=== PATIENT | female | born 1990 | race Caucasian/White ===

== ENCOUNTER 2020-11-15 22:52 | Inpatient (IN) | payer MEDICAID, SELFPAY ==
[2020-11-15 22:51] VITALS: BP 115/70; PULSE 101; RESP 17; TEMP 37.1; O2SAT 96
[2020-11-15 22:53] VITALS: BMI 20.7
[2020-11-16 06:00] VITALS: BP 86/52; PULSE 95; RESP 18; TEMP 36.8; O2SAT 95
[2020-11-16] MEDS: paliperidone ER 3 mg Tablet PO (06:31)
[2020-11-16] MEDS: chlorPROMazine 25 mg Tablet PO ×2 (08:04→16:43)
[2020-11-16] MEDS: duloxetine 30 mg Capsule 90 MG PO (08:04)
[2020-11-16] MEDS: gabapentin 300 mg Capsule 600 MG PO ×3 (08:04→21:20)
[2020-11-16] MEDS: BuSPIRONE 10 mg Tablet PO ×3 (08:04→21:20)
[2020-11-16 14:00] VITALS: BP 86/52; PULSE 97; RESP 16; TEMP 37.1; O2SAT 98
[2020-11-16] MEDS: nicotine 2 mg Gum BUCCAL (14:52)
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
[2020-11-16 20:17] VITALS: BP 92/53; PULSE 97; RESP 18; TEMP 36.9; O2SAT 96
[2020-11-16] MEDS: trazodone 100 mg Tablet PO (21:20)
[2020-11-17 05:57] VITALS: BP 94/61; PULSE 86; RESP 18; TEMP 36.8; O2SAT 95
[2020-11-17] MEDS: paliperidone ER 3 mg Tablet PO (06:58)
[2020-11-17] MEDS: chlorPROMazine 25 mg Tablet PO ×2 (08:40→17:22)
[2020-11-17] MEDS: BuSPIRONE 10 mg Tablet PO ×3 (08:40→21:09)
[2020-11-17] MEDS: duloxetine 30 mg Capsule 90 MG PO (08:40)
[2020-11-17] MEDS: gabapentin 300 mg Capsule 600 MG PO ×3 (08:40→21:09)
[2020-11-17] MEDS: nicotine 21 mg Patch 1 PATCH TRANSDERMA (09:27)
[2020-11-17] MEDS: hyDROXYzine 25 mg Capsule 50 MG PO ×2 (09:27→21:09)
--- NOTE | 2020-11-17 09:28 | PC.NURSE ---
Addendum entered by Michelle Constantino LPN 11/17/20 13:36: late entry prn med effective no further c/o anxiety but pt is withdrawn, isolating in her room Original Note: PRN VISTARIL 50 MG GIVEN PO PER PT C/O STATED ANXIETY PT SOMEWHAT TEARFUL
--- NOTE | 2020-11-17 13:29 | NPU.GN ---
[facility] Group Topic:Depression General Mood of Group: Samantha did attend group today, she was on time and her appearance was appropriate, she did participate. Today we played [employer], The patients marked an X on the symptoms that were called out. After the game was over, we discussed the many different symptoms that were displayed on the bingo card and discussed which symptoms they felt they suffer from and talked about ways to speak to the doctor about them.
[2020-11-17] MEDS: sucralfate 1 gm Tablet PO ×2 (13:47→21:09)
[2020-11-17 14:00] VITALS: BP 106/68; PULSE 115; RESP 20; TEMP 37.2; O2SAT 96
--- NOTE | 2020-11-17 14:02 | PC.NUTR ---
Nutrition note: Upon reviewing nutrition note of Yashira Goldstein (NICOLE), have updated diet to Gluten Free d/t celiac disease. See nutrition assessment for further details.
--- NOTE | 2020-11-17 17:51 | P.PN_ITS ---
Subjective NPU Subjective: Interval history: Samantha presents today reporting she is tolerating her medications being restarted. She is feeling better but still want to consider starting Zoloft with a possible plan to discontinue Cymbalta but she is not sure if she wants to because she feels that helps with some pain issues. We talked about not seeing the Klonopin in her records. And the fact that it would make much more sense for the practitioner who she reports tells her they have no problem with her being on Klonopin with marijuana to initiate that themselves. We discussed the possibility of discharge in the next 48 hours if he continues to improve. Mental Status Exam MSE Comments: This is a slender, underweight white female in [facility] scrubs with adequate grooming and eye contact. No abnormal movements except for mild psychomotor retardation. Cooperative with exam in no acute distress. Speech was decreased volume normal rate, with less whispering. Mood described as a little better, affect congruent. Thought process organized, thought content: Patient denied suicidal or homicidal ideation, there were no delusions reported or noted, she denied auditory or visual hallucinations. Attention and concentration appear intact memory appears reliable but none were formally tested. She is alert oriented x3. Insight and judgment appear improving, impulse control is limited, but improving. Vitals/I&O/Wt Last Vital Signs Temp 98.2 F 11/17/20 22:00 Pulse 90 11/17/20 22:00 Resp 16 11/17/20 22:00 BP 106/72 11/17/20 22:00 Pulse Ox 93 11/17/20 22:00 A&P Assessment and plan (1) PTSD (post-traumatic stress disorder): Status: Acute (2) Cluster B personality disorder in adult: Status: Acute (3) History of methamphetamine abuse: Status: Acute Additional A&P Information This is a 30-year-old white female with a long history of trauma and significant inpatient services with reported history of PTSD and clear cluster B pathology who presents reporting suicidal thinking and being off of medication. 1. Continue current medication. Start Zoloft 50 mg p.o. daily. 2. Continue every 15 minute checks for safety. 3. Encourage individual, group and milieu therapies. 4. We will identify her history with Klonopin but will likely defer that d ecision to the outpatient provider. Involuntary Hold Information 96 Hour Hold: 96 Hour Involuntary Admission: No Attestations NPU Medical Necessity Statement*: Inpatient hospitalization is medically necessary and the clinically appropriate intervention at this time. We will monitor medications and make changes as indicated. Likely length of stay 2-4 days. Coding Level of Care Code Acute Transit Police Officer for g Fwd Diagnoses PTSD (post-traumatic stress disorder) F43.10 Cluster B personality disorder in adult F60.9 History of methamphetamine abuse F15.11
[2020-11-17] MEDS: sertraline 50 mg Tablet PO (17:53)
[2020-11-17] MEDS: trazodone 100 mg Tablet PO (21:09)
--- NOTE | 2020-11-17 21:15 | PC.NURSE ---
PT REQUESTED ANXIETY MED. VISTARIL 50MG PO GIVEN WITH HS MEDS.
[2020-11-17 22:00] VITALS: BP 106/72; PULSE 90; RESP 16; TEMP 36.8; O2SAT 93
--- NOTE | 2020-11-17 22:54 | PC.NURSE ---
PT RESTING QUIETLY WITH BOTH EYES CLOSED.
[2020-11-18 06:00] VITALS: BP 103/64; PULSE 103; RESP 18; TEMP 36.6; O2SAT 94
[2020-11-18] MEDS: paliperidone ER 3 mg Tablet PO (06:30)
[2020-11-18] MEDS: gabapentin 300 mg Capsule 600 MG PO ×3 (08:01→20:31)
[2020-11-18] MEDS: chlorPROMazine 25 mg Tablet PO ×2 (08:01→16:19)
[2020-11-18] MEDS: sertraline 50 mg Tablet PO (08:01)
[2020-11-18] MEDS: sucralfate 1 gm Tablet PO ×3 (08:01→20:31)
[2020-11-18] MEDS: BuSPIRONE 10 mg Tablet PO ×3 (08:01→20:31)
--- NOTE | 2020-11-18 08:02 | PC.NURSE ---
REFUSED SCHEDULED CYMBALTA
[2020-11-18] MEDS: nicotine 21 mg Patch 1 PATCH TRANSDERMA (11:37)
--- NOTE | 2020-11-18 12:10 | NPU.GN ---
[facility] Topic: self medicating General Mood of Group: Did not attend group
[2020-11-18 14:00] VITALS: BP 105/66; PULSE 76; RESP 16; TEMP 37; O2SAT 94
[2020-11-18] MEDS: tizanidine 4 mg Tablet 2 MG PO (16:20)
--- NOTE | 2020-11-18 16:20 | PC.NURSE ---
PRN TIZANIDINE 2 MG GIVEN PO PER PT C/O SPASMS.
--- NOTE | 2020-11-18 17:00 | P.PN_ITS ---
Subjective NPU Subjective: Interval history: Samantha presents today continuing to focus on how to get Klonopin restarted. I advised her to reach out to the treatment provider that she will be going to a week or so and get her to connect with me if in fact ever since the desire is for her to be on this medication. She evaluated emergency department and that she did contact her. We discussed the likelihood of discharge in the next 48 hours. Mental Status Exam MSE Comments: This is a slender, underweight white female in [facility] scrubs with adequate grooming and eye contact. No abnormal movements except for mild psychomotor retardation. Cooperative with exam in occasional acute distress. Speech was decreased volume normal rate, with less whispering. Mood described as a little better, but still anxious, affect congruent. Thought process organized, thought content: Patient denied suicidal or homicidal ideation, there were no delusions reported or noted, she denied auditory or vi sual hallucinations. Attention and concentration appear intact memory appears reliable but none were formally tested. She is alert oriented x3. Insight and judgment appear improving, impulse control is limited, but improving. Vitals/I&O/Wt Last Vital Signs Temp 98.2 F 11/18/20 20:18 Pulse 109 H 11/18/20 20:18 Resp 16 11/18/20 20:18 BP 109/67 11/18/20 20:18 Pulse Ox 94 11/18/20 20:18 A&P Additional A&P Information (1) PTSD (post-traumatic stress disorder): (2) Cluster B personality disorder in adult: (3) History of methamphetamine abuse: This is a 30-year-old white female with a long history of trauma and significant inpatient services with reported history of PTSD and clear cluster B pathology who presents reporting suicidal thinking and being off of medication. 1. Continue current medication. 2. Continue every 15 minute checks for safety. 3. Encourage individual, group and milieu therapies. Involuntary Hold Information 96 Hour Hold: 96 Hour Involuntary Admission: No Attestations NPU Medical Necessity Statement*: Inpatient hospitalization is medically necessary and the clinically appropriate intervention at this time. We will monitor medications and make changes as indicated. Likely length of stay 1-3 days. Coding Level of Care Code Acute Asian Studies Program Chair for Donny Valera
[2020-11-18 20:18] VITALS: BP 109/67; PULSE 109; RESP 16; TEMP 36.8; O2SAT 94
[2020-11-18] MEDS: trazodone 100 mg Tablet PO (20:31)
[2020-11-18] MEDS: hyDROXYzine 25 mg Capsule 50 MG PO (20:45)
[2020-11-18] MEDS: trazodone 50 mg Tablet PO ×2 (20:48→22:08)
[2020-11-19 06:00] VITALS: BP 87/54; PULSE 89; RESP 16; TEMP 37.4; O2SAT 95
[2020-11-19] MEDS: BuSPIRONE 10 mg Tablet PO (09:19)
[2020-11-19] MEDS: chlorPROMazine 25 mg Tablet PO (09:19)
[2020-11-19] MEDS: sertraline 50 mg Tablet PO (09:19)
[2020-11-19] MEDS: gabapentin 300 mg Capsule 600 MG PO (09:19)
[2020-11-19] MEDS: paliperidone ER 3 mg Tablet PO (09:21)
--- NOTE | 2020-11-19 09:22 | PC.NURSE ---
Refusal of Medications Patient states she does not want to take Cymbalta because it has been replaced with Zoloft. Patient states she doesn't want to take Sucralfate because she has already eaten and prefers to take it before she eats.
[2020-11-19] MEDS: nicotine 21 mg Patch 1 PATCH TRANSDERMA (11:25)
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
[2020-11-19 11:57] VITALS: BP 87/54; PULSE 89; RESP 16; TEMP 37.4; O2SAT 95
== END 2020-11-19 15:17 | disposition home or self-care (01) | DRG 883 ==
PROVIDERS: Admitting Provider Psychiatry & Neurology Psychiatry; Visit Provider Psychiatry & Neurology Psychiatry
DX: F60.89 Other specific personality disorders (principal); F15.11 Other stimulant abuse, in remission; F43.10 Post-traumatic stress disorder, unspecified; K90.0 Celiac disease; F41.9 Anxiety disorder, unspecified; F17.210 Nicotine dependence, cigarettes, uncomplicated; Z81.8 Family history of other mental and behavioral disorders
CPT/HCPCS: Q0161